=== PATIENT | male | born 1950 | race Native Hawaiian/Other Pacific Islander ===

== ENCOUNTER 2017-10-22 03:19 | Emergency (ER) | payer OTHER ==
[~2017-10-22] VITALS: Ht 157.5 cm; Wt 72.7 kg
[2017-10-22 04:08] LABS: HEMATOCRIT 42.1 % (38.0-50.0); HEMOGLOBIN 14.6 G/DL (12.5-16.6); MCHC 34.7 G/DL (30.0-36.0); MCV 92.3 FL (86-99); PLATELET COUNT 91 K/uL (156-360); RBC DIS.WIDTH-CV 12.9 % (11.8-14.6); RBC DIS.WIDTH-SD 43.7 % (39-53); RED BLOOD COUNT 4.56 M/uL (4.00-5.50); WHITE BLOOD COUNT 4.5 K/uL (4.1-10.2)
[2017-10-22 04:16] LABS: CHLORIDE 107 mEq/L (99-109); SODIUM 140 mEq/L (136-147)
[2017-10-22 04:18] LABS: GLUCOSE 131 mg/dL (70-99)
[2017-10-22 04:22] LABS: CREATININE 1.2 mg/dL (0.6-1.3); GFR ESTIMATE (CALCULATED) > 59 mL/min/ (58.99-99999)
[2017-10-22 04:23] LABS: UREA NITROGEN (BUN) 22 mg/dL (9-23)
[2017-10-22 04:30] LABS: TROP-I INTERPRETATION NEGATIVE; TROPONIN-I < 0.01 ng/mL (0.0-0.30)
[2017-10-22 04:46] VITALS: BP 103/70
== END 2017-10-22 05:07 | disposition home or self-care (01) ==
LOC: EME 03:19
PROVIDERS: Emergency Medicine
DX: S06.0X9A Concussion with loss of consciousness of unspecified duration, initial encounter (principal); S00.93XA Contusion of unspecified part of head, initial encounter; W01.190A Fall on same level from slipping, tripping and stumbling with subsequent striking against furniture, initial encounter; I45.10 Unspecified right bundle-branch block
CPT/HCPCS: 70450; 80048; 84484; 85027; 93005; 99281; 99284; J7030